=== PATIENT | male | born 1935 | race Caucasian/White ===

== ENCOUNTER 2019-07-25 10:57 | Inpatient (IN) | payer MEDICARE, OTHER ==
[2019-07-25 11:24] LABS: #Eosinphils 0.3 thou/uL (0.0-0.7); #Lymphocytes 0.9 thou/uL (1.20-3.40); #Monocytes 0.4 thou/uL (0.11-0.59); %Basophils 0.6 % (0.0-1.0); %Eosinophils 4.7 % (0.0-10.0); %Lymphocytes 13.1 % (21.0-51.0); %Monocytes 6.5 % (0.0-10.0); %Neutrophils 75.1 % (42.0-75.0); Hemoglobin 13.7 g/dL (14.0-18.0); Mean Corpuscular HGB CONC 33.1 g/dL (32.0-36.0); Mean Corpuscular Hemoglobin 30.5 pg (27.0-31.0); Mean Corpuscular Volume 92.1 fL (78.0-98.0); Mean Platelet Volume 8.7 fL (7.4-10.4); Platelet Count 160 thou/uL (130-400); RBC Distribution Width 13.2 % (11.5-14.5); Red Blood Cell (RBC) Count 4.48 mill/uL (4.70-6.10); White Blood Cell (WBC) Count 6.7 thou/uL (4.8-10.8)
--- NOTE | 2019-07-25 11:30 | CT ---
Exam: Head CT without contrast HISTORY: Altered mental status. Left-sided weakness and facial droop. Last seen normal yesterday 2200 hours COMPARISON: 10/28/2010 FINDINGS: Hemorrhage: No intraparenchymal hemorrhage or extra-axial hematoma. Brain parenchyma: Cortical cody-white matter differentiation is preserved. No mass effect or midline shift. Basilar cisterns are patent.Chronic small vessel ischemic changes white matter are noted. Ventricular system: Ventricles and sulci are patent and symmetric. Calvarium: Intact. Sinuses and mastoid air cells: Adequate aeration. IMPRESSION: No acute intracranial process. Results study discussed with Dr. Packer 11:27 AM on 07/25/2019 Code CR
[2019-07-25 11:38] LABS: INR-International Normal Ratio 1.1
[2019-07-25 11:55] LABS: ALT (SGPT) 10 U/L (8-55); AST (SGOT) 11 U/L (5-34); Albumin 3.5 g/dL (3.4-4.8); Alkaline Phosphatase 79 U/L (40-110); Anion Gap 15 mmol/L (10-20); BUN (Urea Nitrogen) 39 mg/dL (8.4-25.7); Bilirubin, Total 1.4 mg/dL (0.2-1.2); CK (CPK) 47 U/L (30-200); Calc. Creatinine Clearance 0 mL/min (70-130); Calcium 10.5 mg/dL (7.8-10.44); Carbon Dioxide 20 mmol/L (23-31); Chloride 110 mmol/L (98-107); Estimated GFR-MDRD 26; Globulin 2.6 g/dL (2.4-3.5); Glucose 105 mg/dL (83-110); Lipase 54 U/L (8-78); Potassium 4.6 mmol/L (3.5-5.1); Protein, Total 6.1 g/dL (5.8-8.1); Sodium 140 mmol/L (136-145)
--- NOTE | 2019-07-25 12:14 | RAD ---
PORTABLE CHEST: Date: 07/25/2019 HISTORY: Left side weakness. COMPARISON: 06/16/2016. FINDINGS/IMPRESSION: Cardiomegaly. AICD leads again noted. No evidence of infiltrate or vascular congestion. No acute find ing or interval change identified. POS: SHIRLEY
[2019-07-25] MEDS ORDERED: Aspirin Chewable 81 MG TAB ONE (12:26)
[2019-07-25 12:55] LABS: Bacteria/HPF None Seen HPF (None Seen); Bilirubin Negative (Negative); Blood, Urine Negative (Negative); Clarity Clear (Clear); Glucose, Urine (Dipstick) Normal (Negative); Leukocyte Negative Leu/uL (Negative); Nitrite Negative (Negative); Protein, Urine (Dipstick) 100 mg/dL (Neg-Trace); RBC/HPF 0-3 HPF (0-3); Squamous Epithelial 0-3 HPF (0-3); Urobilinogen Normal mg/dL (Less than 2); WBC/HPF 0-3 HPF (0-3)
--- NOTE | 2019-07-25 16:04 | HP ---
PRIMARY CARE PHYSICIAN: Dr. Kim Benitez. REASON FOR ADMISSION: TIA. HISTORY OF PRESENT ILLNESS: An 83-year-old male who has underlying history of hypertension, coronary artery disease, dyslipidemia, and CKD stage 4, who was brought to emergency room because the patient was having left-sided weakness and left-sided facial droop. The patient was not able to get out of bed this morning. The patient was brought to emergency room; at that time, the patient's weakness and facial droop completely resolved. The patient had a CT brain, which was negative for any acute intracranial process. The patient is being admitted for rule out CVA. The patient denies any chest pain, palpitation, or shortness of breath. He denies any fever or chills. He denies any fall. He denies any trauma. He denies any headache or speech problem. REVIEW OF SYSTEMS: CONSTITUTIONAL: Negative for weight loss or gain, ability to conduct usual activities. SKIN: Negative for rash, itching. EYES: Negative for double vision, pain. ENT/MOUTH: Negative for nose bleeding, neck stiffness, pain, tenderness. CARDIOVASCULAR: Negative for palpitations, dyspnea on exertion, orthopnea. RESPIRATORY: Negative for shortness of breath, wheezing, cough, hemoptysis, fever or night sweats. GASTROINTESTINAL: Negative for poor appetite, abdominal pain, heartburn, nausea, vomiting, constipation, or diarrhea. GENITOURINARY: Negative for urgency, frequency, dysuria, nocturia. MUSCULOSKELETAL: Negative for pain, swelling. NEUROLOGIC/PSYCHIATRIC: Negative for anxiety, depression. ALLERGY/IMMUNOLOGIC: Negative for skin rash, bleeding tendency. Please see my HPI for pertinent positives and negatives. All other review of systems reviewed and negative except as mentioned in HPI. EMERGENCY ROOM COURSE: The patient has received aspirin and IV fluid. PAST MEDICAL HISTORY: Coronary artery disease with history of cardiac catheterization and stent placement, pacemaker placement, gout, hypertension, dyslipidemia, CKD stage 4. PAST SURGICAL HISTORY: Right hip replacement, right knee replacement. PAST PSYCHIATRIC HISTORY: Reviewed and negative. SOCIAL HISTORY: The patient is , lives at home with his . No history of tobacco, alcohol, or illicit drug abuse. FAMILY HISTORY: No strong family history of premature coronary artery disease, stroke, or cancer. ALLERGIES: NO KNOWN DRUG ALLERGIES. CURRENT HOME MEDICATIONS: 1. Coreg 12.5 mg twice daily. 2. Colchicine 0.6 mg daily. 3. Imdur 30 mg daily. 4. Hydralazine 10 mg twice daily. 5. Lasix 40 mg daily. 6. Calcitriol 0.25 mcg p.o. daily. 7. Amlodipine 2.5 mg p.o. daily. 8. Allopurinol 300 mg p.o. daily. 9. Zocor 40 mg p.o. every other day. 10. Aspirin 81 mg p.o. daily. PHYSICAL EXAMINATION: VITAL SIGNS: On arrival, blood pressure 131/80, pulse 80, respiratory rate 18, temperature 97.8, saturation 97% on room air. Weight 134 kg. GENERAL: The patient is currently alert, awake, in no acute distress. HEENT: Head, normocephalic and atraumatic. NECK: Supple. No JVD. No meningeal signs of irritation. LUNGS: Clear to auscultation without any rhonchi or rales. CARDIAC: S1 and S2 regular. No murmur. No gallop. No rub. ABDOMEN: Soft, bowel sounds present, nontender, nondistended. No organomegaly. No mass. EXTREMITIES: No edema. Good distal pulsation. SKIN: No skin rash. HEMATOLOGICAL: No lymphadenopathy. NEUROLOGIC: The patient is alert and oriented x3. Speech normal. Cranial nerves 2 through 12 intact. Motor and sensation within normal limits. No focal neurological deficit noted. SIGNIFICANT LABORATORY DATA: EKG showing pacemaker rhythm. CT brain based on my review, no acute intracranial process. Chest x-ray based on my review, no acute cardiopulmonary process. CBC; WBC 6.7, hemoglobin 13.7, platelets 160. INR 1.1. Sodium 140, potassium 4.6, chloride 110, carbon dioxide 20, BUN 39, creatinine 2.44, glucose 105, calcium 10.5. LFT; AST 11, ALT 10, alkaline phosphatase 79, albumin 3.5, lipase 54, CK-MB 1.0, troponin 0.068. BNP 982.8. Urinalysis unremarkable. ASSESSMENT AND PLAN: 1. Transient ischemic attack. 2. Chronic kidney disease, stage 4. 3. Elevated troponin. 4. Elevated BNP. 5. Coronary artery disease. 6. History of systolic heart failure. 7. Ischemic cardiomyopathy. PLAN: 1. Observation to stroke floor. Echocardiography. MRI brain. Neurologic consultation. Carotid Doppler. Aspirin 325 mg p.o. daily, Lipitor 40 mg p.o. at bedtime, Pepcid 20 mg p.o. daily. 2. Deep venous thrombosis prophylaxis, SCD boots. GI prophylaxis, Pepcid 20 mg p.o. daily. CODE STATUS: The patient is full code. The patient is not on ROYER inhibitor and ARB because of advanced renal function. The patient is instead on hydralazine mononitrate regimen. Job ID: [id number]
[2019-07-25] MEDS ORDERED: Ondansetron PF 4 MG/2 ML Vial IVP PRN ×2 (17:54→18:06)
[2019-07-25] MEDS ORDERED: Ondansetron ODT 4 MG TAB SL PRN (17:54)
[2019-07-25] MEDS ORDERED: HYDROcodone/Acetaminophen 5/325 mg Tablet PO PRN (18:06)
[2019-07-25] MEDS ORDERED: hydrALAZINE 20 MG/ML VIAL SLOW IVP PRN (18:06)
[2019-07-25] MEDS ORDERED: Calcium Carbonate 500 MG ChewTAB PO PRN (18:06)
[2019-07-25] MEDS ORDERED: Ondansetron ODT 4 MG TAB PO PRN (18:06)
[2019-07-25] MEDS ORDERED: Loratadine 10 MG TAB PO PRN (18:06)
[2019-07-25] MEDS ORDERED: Senokot S 8.6-50 MG TAB PO PRN (18:06)
[2019-07-25] MEDS ORDERED: Bisacodyl 10 MG SUPP PR PRN (18:06)
[2019-07-25] MEDS ORDERED: Acetaminophen 325 MG TAB PO PRN (18:06)
[2019-07-25] MEDS ORDERED: Artificial Tears 18 DROP/0.9 ML EA EYE PRN (18:06)
[2019-07-25] MEDS ORDERED: Diabetic Tussin 200 MG/10 ML UDCUP PO PRN (18:06)
[2019-07-25] MEDS ORDERED: Sodium Chloride 0.65% Nasal 44 ML BOT EA NARE PRN (18:06)
[2019-07-25] MEDS ORDERED: Zolpidem Tartrate 5 MG TAB PO PRN (18:06)
[2019-07-25] MEDS ORDERED: Loperamide HCl 2 MG CAP PO PRN (18:06)
[2019-07-25 18:29] LABS: CKMB 1.8 ng/mL (0-6.6)
[2019-07-25] MEDS: Carvedilol 6.25 MG TAB PO SCH (21:18)
[2019-07-25] MEDS: Atorvastatin Calcium 40 MG TAB PO SCH (21:19)
[2019-07-25] MEDS: hydrALAZINE 10 MG TAB PO SCH (21:20)
[2019-07-25 22:42] VITALS: BMI 33.9
[2019-07-26 05:34] LABS: Cardiac Risk 3.6 (Less than 4.5)
[2019-07-26] MEDS ORDERED: Amlodipine 5 MG TAB PO SCH (09:00)
[2019-07-26] MEDS ORDERED: FLU VACC TS2019-20(65YR UP)/PF 180 MCG/0.5 ML SYRINGE IM ONE (09:00)
--- NOTE | 2019-07-26 09:10 | ULT ---
US Carotid Doppler STANDARD History: Transient ischemic attack Comparison: None. Findings: Real-time grayscale, color, and spectral analysis of the extracranial carotid and vertebral arteries was performed. No elevated peak systolic velocities within the internal carotid arteries. Antegrade flow both verteb ral arteries. Moderate atherosclerotic plaque both carotid bulbs and proximal internal carotid arteries. Impression: No hemodynamically significant stenosis.
[2019-07-26] MEDS: Allopurinol 300 MG TAB PO SCH (09:11)
[2019-07-26] MEDS: Aspirin 325 MG TAB PO SCH (09:20)
[2019-07-26] MEDS: Famotidine 20 MG TAB PO SCH (09:20)
[2019-07-26] MEDS: Calcitriol 0.25 MCG CAP PO SCH (09:20)
[2019-07-26] MEDS: Carvedilol 6.25 MG TAB PO SCH ×2 (09:20→22:02)
[2019-07-26] MEDS: hydrALAZINE 10 MG TAB PO SCH ×2 (09:21→22:02)
[2019-07-26] MEDS: Isosorbide Mononitrate (ER) 30 MG TAB PO SCH (09:21)
--- NOTE | 2019-07-26 13:37 | PRG ---
DATE OF SERVICE: 07/26/2019 SUBJECTIVE: An 83-year-old male with chronic systolic heart failure, coronary artery disease, hypertension, and dyslipidemia, presented to the emergency room with stroke-like symptoms. He denies any new deficit. He continues to have left-sided weakness along with facial droop. No chest pain, palpitations, syncope, or seizure reported. REVIEW OF SYSTEMS: All other review of systems were reviewed and were found negative. CURRENT MEDICATIONS: Reviewed. Aspirin has been increased to 325. OBJECTIVE: VITAL SIGNS: Temperature 97.7, pulse rate of 61, blood pressure of 90/51 with O2 saturation 96% on room air, respirations of 16. GENERAL: An 83-year-old male, in no apparent distress. LUNGS: Clear to auscultation bilaterally. No wheezing, rales, or rhonchi. HEART: S1 and S2 present. Regular. No rubs or gallops. AICD noted. ABDOMEN: Soft, nontender. Bowel sounds present. EXTREMITIES: No edema or calf tenderness. NEUROLOGIC: The patient continues to have left-sided weakness along with facial droop. Sensation to touch was almost normal bilaterally. [id number] test was somewhat slow on the left. There was no new focal deficit. PSYCHIATRY: Alert, awake, and oriented x3. Normal affect. DIAGNOSTIC DATA: Telemetry monitoring by my review showed paced rhythm. MRI could not be done due to AICD. The patient is declining echocardiogram at this time. He states that he had an echocardiogram [address] Jolley' office that showed ejection fraction of 35%. Carotid Doppler was negative for hemodynamically significant stenosis. Chest x-ray by my review was negative for infiltrate or edema. IMPRESSION: 1. 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 2. Chronic systolic heart failure, ejection fraction 35% range, status post automatic implantable cardioverter-defibrillator. 3. Coronary artery disease. 4. Ischemic cardiomyopathy. 5. Chronic kidney disease, stage 4. 6. Elevated troponins probably secondary to congestive heart failure, questionable type 2 myocardial infarction. 7. Hypotension. 8. Obesity with a BMI of 33.9. 9. Chronic anemia. PLAN: We will continue 325 mg aspirin along with statins. We will hold amlodipine for now. Reduce carvedilol to 6.25 mg b.i.d. Continue isosorbide mononitrate. Recheck electrolytes in a.m. Continue physical therapy. The patient understands the above plan of care. Job ID: [id number]
--- NOTE | 2019-07-26 18:01 | CON ---
DATE OF CONSULTATION: 07/26/2019 CHIEF COMPLAINT: Weakness. HISTORY OF PRESENT ILLNESS: The patient got up, tried to get out of bed, he has a waterbed which was changed to an airbed. He could not get a cross, he has a crossbar and he could not get out, so it took him an hour. Paramedics were called and they told him he had a stroke and brought him to the hospital. PREVIOUS MEDICAL HISTORY: Includes coronary artery disease, chronic kidney disease. He stated he does not have high blood pressure, but his chart review states he has hypertension, chronic kidney disease as well, and he has coronary artery disease with stent placement and pacemaker placement, gout, hypertension, dyslipidemia, in addition to this. PREVIOUS SURGICAL HISTORY: Includes right hip replacement, bilateral knee replacements, and pacemaker placement. PSYCHIATRIC HISTORY: Negative. SOCIAL HISTORY: He is , lives with his . There is no history of alcohol or tobacco use. He has smoked for 20 years and he quit at the age of 47 and he used to smoke one pack a day in the past. Does not drink. 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 FAMILY HISTORY: Mother at 101. Father at 80 from an IA. The patient has 3 siblings, all in their 80s, they are reasonably healthy. He has 3 sons, all of them are healthy. ALLERGIES: NO KNOWN DRUG ALLERGIES. HOME MEDICATIONS: He takes: 1. Coreg. 2. Colchicine. 3. Imdur. 4. Hydralazine. 5. Lasix. 6. Calcitriol. 7. Amlodipine. 8. Allopurinol. 9. Zocor. 10. Aspirin. REVIEW OF SYSTEMS: PULMONARY: Negative for shortness of breath or cough. GI: Negative for nausea, vomiting, or diarrhea. NEUROLOGIC: Positive for weakness. CARDIAC: Negative for chest pain. OPHTHALMOLOGIC: Negative for any vision issues. LABORATORY DATA: White count 6.7, hemoglobin 13.7, hematocrit 41.3, and platelet count is 160. PT 14, INR 1.1, and PTT 29. Sodium 140, potassium 4.6, chloride 110, bicarb 20, BUN 39, creatinine 2.44, glucose 105, calcium 10.5, and bilirubin 1.4. Cholesterol and lipid profile within normal limits. Urinalysis is negative. His CT of the head does show chronic microvascular ischemic changes and no acute process. Echocardiogram is pending. Carotid Doppler was completed and Doppler does not show any hemodynamically significant stenosis. PHYSICAL EXAMINATION: VITAL SIGNS: Temperature 97.5, pulse 60, respiratory rate 16, and blood pressure 95/51. GENERAL APPEARANCE: Well-built, well-nourished man. CHEST: Clear vesicular breathing. CARDIOVASCULAR: S1 and S2 heard. No murmurs. ABDOMEN: Soft and nontender. No organomegaly noted. NEUROLOGIC: Motor, bulk normal. Tone normal. Strength 5/5 throughout on the right side. In the left side, his extensors were 4/5, flexors were 5. Muscle groups tested deltoid, biceps, triceps, wrist extension and flexion, finger extension and flexion bilaterally, iliopsoas hamstrings, quadriceps, ankle dorsiflexion and plantar flexion. Cerebellar, normal [id number] and [id number]. Sensory, normal to touch bilaterally. IMPRESSION: The patient is an 83-year-old man with history of difficulty getting out of bed today and he has left-sided weakness on exam and there is no previous history of stroke, but he does have cardiac risk factors for stroke. His stroke risk factors include coronary artery disease, hyperlipidemia, and hypercholesterolemia. His examination showed hypotension as well, which can be contributory to generalized weakness. RECOMMENDATIONS: Please make sure, the patient is on high-dose aspirin along with statin for stroke prophylaxis. We can always add Plavix if needed. Unfortunately, we cannot obtain MRI to confirm stroke, but I suspect he might have had a microvascular ischemic event based on his exam. I will follow up as needed. Job ID: [id number]
[2019-07-26] MEDS: Atorvastatin Calcium 40 MG TAB PO SCH (22:03)
[2019-07-27 05:11] LABS: Anion Gap 12 mmol/L (10-20); BUN (Urea Nitrogen) 41 mg/dL (8.4-25.7); Calc. Creatinine Clearance 35 mL/min (70-130); Calcium 10.3 mg/dL (7.8-10.44); Carbon Dioxide 21 mmol/L (23-31); Chloride 110 mmol/L (98-107); Estimated GFR-MDRD 27; Glucose 93 mg/dL (83-110); Potassium 4.2 mmol/L (3.5-5.1); Sodium 139 mmol/L (136-145)
[2019-07-27] MEDS: Aspirin 325 MG TAB PO SCH (09:53)
[2019-07-27] MEDS: Famotidine 20 MG TAB PO SCH (09:54)
[2019-07-27] MEDS: Isosorbide Mononitrate (ER) 30 MG TAB PO SCH (09:55)
[2019-07-27] MEDS: Calcitriol 0.25 MCG CAP PO SCH (09:55)
[2019-07-27] MEDS: hydrALAZINE 10 MG TAB PO SCH ×2 (09:55→21:26)
[2019-07-27] MEDS: Allopurinol 300 MG TAB PO SCH (09:55)
[2019-07-27] MEDS: Carvedilol 6.25 MG TAB PO SCH (09:56)
--- NOTE | 2019-07-27 13:01 | PDOC.HOSPP ---
- Subjective Encounter Date: 07/27/19 Encounter Time: 08:30 Subjective: Patient seen and examined for CVA. Slight worsening of Left sided weakness. No new complaints. No overnight events - Objective Vital Signs & Weight: Vital Signs (12 hours) Temp Pulse Resp BP BP Pulse Ox 07/27/19 11:00 98.7 F 96 13 106/46 L 95 07/27/19 09:56 117/68 07/27/19 09:55 60 117/68 07/27/19 07:00 97.8 F 60 13 126/78 93 L 07/27/19 03:37 98.3 F 59 L 18 112/66 98 Weight Weight 223 lb I&O: 07/26/19 07/27/19 07/28/19 06:59 06:59 06:59 Intake Total 1400 780 Output Total 350 Balance 1050 780 Result Diagrams: 07/25/19 11:08 07/27/19 04:32 EKG Reviewed by me: Yes (Tele SR) Hospitalist ROS - Review of Systems Respiratory: denies: cough, dry, shortness of breath, hemoptysis, SOB with excertion, pleuritic pain, sputum, wheezing, other Cardiovascular: denies: chest pain, palpitations, orthopnea, paroxysmal noc. dyspnea, edema, light headedness, other - Medication Medications: Active Medications Generic Name Dose Route Start Last Admin Trade Name Freq PRN Reason Stop Dose Admin Allopurinol 300 mg 07/26/19 09:00 07/27/19 09:55 Zyloprim PO 300 mg DAILY MASTER Administration Aspirin 325 mg 07/26/19 09:00 07/27/19 09:53 Aspirin PO 325 mg DAILY MASTER Administration Atorvastatin Calcium 40 mg 07/25/19 21:00 07/26/19 22:03 Lipitor PO 40 mg HS MASTER Administration Calcitriol 0.25 mcg 07/26/19 09:00 07/27/19 09:55 Rocaltrol PO 0.25 mcg DAILY MASTER Administration Carvedilol 6.25 mg 07/26/19 21:00 07/27/19 09:56 Coreg PO 6.25 mg BID MASTER Administration Famotidine 20 mg 07/26/19 09:00 07/27/19 09:54 Pepcid PO 20 mg DAILY MASTER Administration Hydralazine HCl 10 mg 07/25/19 21:00 07/27/19 09:55 Apresoline PO 10 mg BID MASTER Administration Isosorbide Mononitrate 30 mg 07/26/19 09:00 07/27/19 09:55 Imdur Er PO 30 mg DAILY MASTER Administration Loratadine 10 mg 07/25/19 18:06 07/26/19 22:01 Claritin PO 10 mg DAILYPRN PRN Administration Sinus Symptoms Sodium Chloride 0 ml 07/25/19 18:06 07/26/19 22:00 [place] Nasal [place] 0.65% EA NARE 1 spray QIDPRN PRN Administration Nasal Congestion - Exam General Appearance: NAD Neck: supple, no JVD Heart: RRR, no gallops Respiratory: no wheezes, no rales, no ronchi Gastrointestinal: non-tender, non-distended, normal bowel sounds Neurological: no new deficit Psychiatric: normal affect, A&O x 3 Hosp A/P - Plan DVT proph w/lovenox, DVT proph w/SCDs IMPRESSION: 1. 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 2. Chronic systolic heart failure, ejection fraction 35% range, status post automatic implantable cardioverter-defibrillator. 3. Coronary artery disease. 4. Ischemic cardiomyopathy. 5. Chronic kidney disease, stage 4. 6. Elevated troponins probably secondary to congestive heart failure, questionable type 2 myocardial infarction. 7. Hypotension. 8. Obesity with a BMI of 33.9. 9. Chronic anemia. 10. ANJEL on CPAP PLAN: Reduce Coreg dose Repeat CT brain today Cont ASA/Statins Echo pending Stroke team
--- NOTE | 2019-07-27 13:08 | CT ---
CT HEAD WITHOUT CONTRAST: Date: 07/27/2019 INDICATION: CVA. Comparison made to recent CT head of 07/25/2019. FINDINGS: Mild cortical volume loss. Moderate chronic ischemic white matter change. Ischemic change into the ri ght basal ganglia could represent subacute lacunar infarct. There is no evidence of acute cortical infarct. No mass or hemorrhage. If there is concern of new neurologic deficit, recommend MRI to assess for restricted diffusion. IMPRESSION: No acute interval change in the head CT. Consider MRI if there is concern of infarct. POS: MILLER
[2019-07-27] MEDS: Carvedilol 3.125 MG TAB PO SCH (16:54)
[2019-07-27] MEDS ORDERED: Tamsulosin HCl 0.4 MG CAP PO SCH (21:15)
[2019-07-27] MEDS: Atorvastatin Calcium 40 MG TAB PO SCH (21:26)
[2019-07-28] MEDS: Allopurinol 300 MG TAB PO SCH (08:41)
[2019-07-28] MEDS: hydrALAZINE 10 MG TAB PO SCH ×2 (08:41→21:20)
[2019-07-28] MEDS: Aspirin 325 MG TAB PO SCH (08:41)
[2019-07-28] MEDS: Famotidine 20 MG TAB PO SCH (08:41)
[2019-07-28] MEDS: Carvedilol 3.125 MG TAB PO SCH ×2 (08:41→17:37)
[2019-07-28] MEDS: Isosorbide Mononitrate (ER) 30 MG TAB PO SCH (08:41)
[2019-07-28] MEDS: Calcitriol 0.25 MCG CAP PO SCH (08:41)
[2019-07-28] MEDS ORDERED: Furosemide 40 MG TAB PO SCH (12:15)
--- NOTE | 2019-07-28 18:34 | CON ---
DATE OF CONSULTATION: REASON FOR CONSULTATION: Recent cerebrovascular accident. HISTORY OF PRESENT ILLNESS: Mr. Lucio is an 83-year-old gentleman who was seen and evaluated in the past. He has a history of CAD, status post NE in addition to stent placement. He has an ischemic cardiomyopathy status post ICD. His last LVEF estimated at 20%. He recently presented with left-sided weakness. The weakness has not completely resolved. MRI could not be performed due to incompatible ICD. PAST MEDICATIONS: Include: 1. Allopurinol. 2. Calcitriol. 3. Vitamin C. 4. Atorvastatin. 5. Amlodipine. 6. Coreg. 7. Hydralazine. 8. Isosorbide. 9. Aspirin. 10. Flomax. 11. Eliquis. 12. Lasix. PAST MEDICAL HISTORY: CAD status post NE, obstructive sleep apnea, hyperlipidemia, chronic kidney disease, previous NE, pericardial effusion, knee replacement, hip replacement, back surgery, heel surgery, paroxysmal atrial fibrillation. SOCIAL HISTORY: No current tobacco use or alcohol use. ALLERGIES: NONE. REVIEW OF SYSTEMS: A 10-point review of systems is reviewed as above, otherwise negative. PHYSICAL EXAMINATION: GENERAL: Patient is a pleasant 83-year-old gentleman who is in no acute distress. The patient appears their stated age. VITAL SIGNS: Blood pressure 118/62, pulse temperature 97.8. NEUROLOGIC: The patient is alert and oriented x3 with no focal neurologic deficits. HEENT: Sclerae without icterus. Mouth has moist mucous membranes with normal pallor. NECK: No JVD. Carotid upstroke brisk. No bruits bilaterally. LUNGS: Clear to auscultation with unlabored respirations. BACK: No scoliosis or kyphosis. CARDIAC: Regular rate and rhythm with normal S1 and S2. No S3 or S4 noted. No significant rubs, murmurs, thrills, or gallops noted throughout the precordium. PMI is not displaced. There is no parasternal heave. ABDOMEN: Soft, nontender, nondistended. No peritoneal signs present. No hepatosplenomegaly. No abnormal striae. EXTREMITIES: 2+ femoral and 2+ dorsalis pedis pulses. No cyanosis, clubbing, or edema. SKIN: No gross abnormalities. NEUROLOGICAL: Left-sided weakness. PERTINENT LABORATORY DATA: Hemoglobin 13.7, hematocrit 41.3. Creatinine 2.36. Troponin 0.108. IMPRESSION: 1. Recent cerebrovascular accident. 2. Recent diagnosis of paroxysmal atrial fibrillation. 3. Ischemic cardiomyopathy. 4. Status post implantable cardioverter-defibrillator. RECOMMENDATIONS: Mr. Lucio was diagnosed with paroxysmal atrial fibrillation in March of 2019. He was last seen in May. At that time, he has continued to take Eliquis. . He is currently not taking Eliquis. Etiology is unknown. His recent episode of CVA, likely related to paroxysmal atrial fibrillation. We would recommend full-dose anticoagulation. Would discontinue Plavix and continue aspirin. ICD was interrogated. No changes were noted. Job ID: [id number]
[2019-07-28] MEDS: Atorvastatin Calcium 40 MG TAB PO SCH (21:19)
[2019-07-28] MEDS: Apixaban 2.5 MG TAB PO SCH (21:19)
--- NOTE | 2019-07-28 22:05 | PDOC.HOSPP ---
- Subjective Encounter Date: 07/28/19 Encounter Time: 08:30 Subjective: Patient seen and examined for Acute CVA. No new focal deficits. No new complaints. No overnight events - Objective Vital Signs & Weight: Vital Signs (12 hours) Temp Pulse Resp BP BP Pulse Ox 07/28/19 21:20 59 L 118/62 07/28/19 19:20 97.4 F L 59 L 18 118/62 98 07/28/19 15:47 97.7 F 60 13 117/66 96 07/28/19 11:47 97.8 F 60 19 118/62 96 Weight Weight 223 lb I&O: 07/27/19 07/28/19 07/29/19 06:59 06:59 06:59 Intake Total 780 120 580 Output Total 350 Balance 780 120 230 Result Diagrams: 07/25/19 11:08 07/27/19 04:32 Radiology Reviewed by me: Yes (CT brain - neg) EKG Reviewed by me: Yes (Tele Paced) Hospitalist ROS - Review of Systems Respiratory: denies: cough, dry, shortness of breath, hemoptysis, SOB with excertion, pleuritic pain, sputum, wheezing, other Cardiovascular: denies: chest pain, palpitations, orthopnea, paroxysmal noc. dyspnea, edema, light headedness, other - Medication Medications: Active Medications Generic Name Dose Route Start Last Admin Trade Name Freq PRN Reason Stop Dose Admin Allopurinol 300 mg 07/26/19 09:00 07/28/19 08:41 Zyloprim PO 300 mg DAILY MASTER Administration Apixaban 2.5 mg 07/28/19 21:00 07/28/19 21:19 Eliquis PO 2.5 mg BID MASTER Administration Atorvastatin Calcium 40 mg 07/25/19 21:00 07/28/19 21:19 Lipitor PO 40 mg HS MASTER Administration Calcitriol 0.25 mcg 07/26/19 09:00 07/28/19 08:41 Rocaltrol PO 0.25 mcg DAILY MASTER Administration Carvedilol 3.125 mg 07/27/19 17:00 07/28/19 17:37 Coreg PO 3.125 mg BID-WM MASTER Administration Famotidine 20 mg 07/26/19 09:00 07/28/19 08:41 Pepcid PO Not Given DAILY MASTER Hydralazine HCl 10 mg 07/25/19 21:00 07/28/19 21:20 Apresoline PO 10 mg BID MASTER Administration Isosorbide Mononitrate 30 mg 07/26/19 09:00 07/28/19 08:41 Imdur Er PO 30 mg DAILY MASTER Administration Loratadine 10 mg 07/25/19 18:06 07/26/19 22:01 Claritin PO 10 mg DAILYPRN PRN Administration Sinus Symptoms Sodium Chloride 0 ml 07/25/19 18:06 07/26/19 22:00 [place] Nasal [place] 0.65% EA NARE 1 spray QIDPRN PRN Administration Nasal Congestion - Exam General Appearance: NAD Neck: supple, no JVD Heart: no gallops, no rubs Respiratory: no wheezes, no ronchi Gastrointestinal: non-distended, normal bowel sounds Extremities: no cyanosis Neurological: no new deficit Neurological - other findings: left sided weakness Psychiatric: normal affect, A&O x 3 Hosp A/P - Plan 1. 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 2. Chronic systolic heart failure, ejection fraction 35% range, status post automatic implantable cardioverter-defibrillator. 3. Coronary artery disease. 4. Ischemic cardiomyopathy. 5. Chronic kidney disease, stage 4. 6. Elevated troponins probably secondary to congestive heart failure, questionable type 2 myocardial infarction. 7. Hypotension. 8. Obesity with a BMI of 33.9. 9. Chronic anemia. 10. ANJEL on CPAP PLAN: Cont Coreg dose Resume selected home meds Cont PT/OT Cont ASA/Statins Echo reviewed Rehab eval
[2019-07-29 04:55] LABS: Hemoglobin 12.9 g/dL (14.0-18.0); Platelet Count 149 thou/uL (130-400)
[2019-07-29 05:15] LABS: Anion Gap 11 mmol/L (10-20); BUN (Urea Nitrogen) 45 mg/dL (8.4-25.7); Calc. Creatinine Clearance 34 mL/min (70-130); Calcium 10.3 mg/dL (7.8-10.44); Carbon Dioxide 24 mmol/L (23-31); Chloride 110 mmol/L (98-107); Estimated GFR-MDRD 25; Glucose 97 mg/dL (83-110); Magnesium 1.9 mg/dL (1.6-2.6); Potassium 4.2 mmol/L (3.5-5.1); Sodium 141 mmol/L (136-145)
[2019-07-29] MEDS ORDERED: Furosemide 40 MG TAB PO SCH (07:30)
[2019-07-29] MEDS ORDERED: Clopidogrel Bisulfate 75 MG TAB PO SCH (09:00)
[2019-07-29] MEDS ORDERED: Aspirin 81 mg Enteric Coated Tablet PO SCH (09:00)
[2019-07-29] MEDS ORDERED: Furosemide 20 MG TAB PO SCH (09:30)
[2019-07-29] MEDS: Carvedilol 3.125 MG TAB PO SCH ×2 (10:02→17:48)
[2019-07-29] MEDS: Allopurinol 300 MG TAB PO SCH (10:02)
[2019-07-29] MEDS: Apixaban 2.5 MG TAB PO SCH (10:02)
[2019-07-29] MEDS: hydrALAZINE 10 MG TAB PO SCH (10:04)
[2019-07-29] MEDS: Calcitriol 0.25 MCG CAP PO SCH (10:05)
[2019-07-29] MEDS: Isosorbide Mononitrate (ER) 30 MG TAB PO SCH (10:05)
[2019-07-29] MEDS: Famotidine 20 MG TAB PO SCH (10:05)
--- NOTE | 2019-07-29 10:20 | PDOC.HOSPP ---
- Subjective Encounter Date: 07/29/19 Encounter Time: 08:30 Subjective: Patient seen and examined for Acute CVA. No CP/SOB/focal deficits. No new complaints. No overnight events - Objective Vital Signs & Weight: Vital Signs (12 hours) Temp Pulse Resp BP BP Pulse Ox 07/29/19 10:04 59 L 125/67 07/29/19 07:00 97.3 F L 60 12 121/62 98 07/29/19 03:30 97.3 F L 60 18 125/72 99 07/28/19 23:30 97.7 F 63 20 128/76 98 Weight Weight 223 lb I&O: 07/28/19 07/29/19 07/30/19 06:59 06:59 06:59 Intake Total 120 580 Output Total 350 Balance 120 230 Result Diagrams: 07/29/19 04:36 07/29/19 04:36 EKG Reviewed by me: Yes (Tele SR) Hospitalist ROS - Review of Systems Respiratory: denies: cough, dry, shortness of breath, hemoptysis, SOB with excertion, pleuritic pain, sputum, wheezing, other Cardiovascular: denies: chest pain, palpitations, orthopnea, paroxysmal noc. dyspnea, edema, light headedness, other - Medication Medications: Active Medications Generic Name Dose Route Start Last Admin Trade Name Cedricq PRN Reason Stop Dose Admin Allopurinol 300 mg 07/26/19 09:00 07/29/19 10:02 Zyloprim PO 300 mg DAILY MASTER Administration Apixaban 2.5 mg 07/28/19 21:00 07/29/19 10:02 Eliquis PO 2.5 mg BID MASTER Administration Aspirin 81 mg 07/29/19 09:00 07/29/19 10:04 Ecotrin PO 81 mg DAILY MASTER Administration Atorvastatin Calcium 40 mg 07/25/19 21:00 07/28/19 21:19 Lipitor PO 40 mg HS MASTER Administration Calcitriol 0.25 mcg 07/26/19 09:00 07/29/19 10:05 Rocaltrol PO 0.25 mcg DAILY MASTER Administration Carvedilol 3.125 mg 07/27/19 17:00 07/29/19 10:02 Coreg PO 3.125 mg BID-WM MASTER Administration Famotidine 20 mg 07/26/19 09:00 03/03/20 10:05 Pepcid PO 20 mg DAILY MASTER Administration Furosemide 20 mg 07/29/19 09:30 07/29/19 10:03 Lasix PO 07/29/19 11:00 20 mg NOW MASTER Administration Hydralazine HCl 10 mg 07/25/19 21:00 07/29/19 10:04 Apresoline PO 10 mg BID MASTER Administration Isosorbide Mononitrate 30 mg 07/26/19 09:00 07/29/19 10:05 Imdur Er PO 30 mg DAILY MASTER Administration Loratadine 10 mg 07/25/19 18:06 07/26/19 22:01 Claritin PO 10 mg DAILYPRN PRN Administration Sinus Symptoms Sodium Chloride 0 ml 07/25/19 18:06 07/26/19 22:00 [place] Nasal [place] 0.65% EA NARE 1 spray QIDPRN PRN Administration Nasal Congestion - Exam General Appearance: NAD Neck: supple, no JVD Heart: no gallops, no rubs Respiratory: no wheezes, no rales Gastrointestinal: non-tender, non-distended Extremities: no cyanosis Neurological: no new deficit Psychiatric: normal affect, A&O x 3 Hosp A/P - Plan 1. 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 Chronic systolic heart failure, ejection fraction 35% range, s/p AICD 3. Coronary artery disease. 4. Ischemic cardiomyopathy. 5. Chronic kidney disease, stage 4. 6. Elevated troponins probably secondary to congestive heart failure, questionable type 2 myocardial infarction. 7. Hypotension. 8. Obesity with a BMI of 33.9. 9. Chronic anemia. 10. ANJEL on CPAP 11. Par Afib PLAN: Cont ASA/Eliquis/Statins Cont Coreg Reduce Lasix dose Cont other meds Cont PT/OT
[2019-07-29 16:11] VITALS: BP 104/58; TEMP 98.1
--- NOTE | 2019-07-29 22:45 | DIS ---
DATE OF ADMISSION: 07/26/2019 DATE OF DISCHARGE: 07/29/2019 DISCHARGE DISPOSITION: Inpatient rehabilitation. FOLLOWUP: 1. Follow up with primary care physician, Dr. Alvarez in 1 week. 2. Follow up with Cardiology, Dr. Jolley and Neurology, Dr. Mantilla as scheduled. CODE STATUS: Do not resuscitate. The patient was seen and examined on the day of discharge. Denies any new complaints. No new focal deficit. Please refer to my progress note for details. DISCHARGE MEDICATIONS: 1. Aspirin 81 mg daily. 2. Eliquis 2.5 mg b.i.d. 3. Carvedilol 3.125 mg b.i.d. 4. Flomax 0.4 mg daily. 5. Isosorbide mononitrate 30 mg daily. 6. Hydralazine 10 mg twice a day. 7. Lasix as needed. 8. Calcitriol 0.25 mcg daily. 9. Bumex 1 mg as directed. 10. Lipitor 40 mg at bedtime. 11. Allopurinol 30 mg daily. INPATIENT CONSULTANTS: 1. Cardiology, Dr. Jolley. 2. Neurology, Dr. Cabrera. BRIEF HOSPITAL COURSE: The patient is an 83-year-old male with coronary artery disease, hypertension, CKD, and dyslipidemia, presented to the emergency room with stroke-like symptoms. His workup was consistent with acute CVA. He was monitored in the stroke unit. CT scan of the brain was negative for acute findings. Carotid Doppler was negative for hemodynamically significant stenosis. Echocardiogram showed ejection fraction of 15% to 20% with moderate mitral regurgitation, mild tricuspid regurgitation, and left ventricular dilatation. MRI was not done due to AICD. He was evaluated by Cardiology and Neurology. Anticoagulation was recommended by Cardiology due to episodes of atrial fibrillation in March. Please note that the patient was advised to start anticoagulation by Cardiology as an outpatient; however, he was only on aspirin on admission. He appears stable for discharge to inpatient rehabilitation. He understands the risk associated with anticoagulation. FINAL DIAGNOSES: 1. 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 2. Chronic systolic heart failure, ejection fraction of 15% to 20% range, status post automatic implantable cardioverter-defibrillator. 3. Paroxysmal atrial fibrillation. 4. Coronary artery disease. 5. Ischemic cardiomyopathy. 6. Chronic kidney disease, stage 4. 7. Hypertension. 8. Obesity with a BMI of 33.9. 9. Chronic anemia suspected due to renal insufficiency. 10. Obstructive sleep apnea, on CPAP. Total time coordinating the discharge of this patient was 36 minutes. Job ID: [id number]
--- NOTE | 2019-07-30 04:58 | PQF ---
KM KAPLAN MALIK MD [id number] [address] [place] [address] [id number] CLINICAL DOCUMENTATION CLARIFICATION FORM: POST DISCHARGE Addendum to original discharge summary date: ____ Late entry note date: __ DATE: 07/30/2019 ATTN: Mark Collins Please exercise your independent, professional judgment in responding to the clarification form. Clinical indicators are provided on the bottom of this form for your review Please check appropriate box(s) to clarify if the following diagnosis has been ruled in or ruled out: Suspected Type 2 Myocardial Infarction: [ x ] Ruled in diagnosis [ ] Continue to treat [ ] Resolved [ ] Ruled out diagnosis [ ] Cannot rule out diagnosis [ ] Other diagnosis [ ] Unable to determine In addition, please specify: Present on Admission (POA): [x ] Yes [ ] No [ ] Unable to determine For continuity of documentation, please document condition throughout progress notes and discharge summary. Thank You. CLINICAL INDICATORS - SIGNS / SYMPTOMS / LABS Coagulation 07/25 PT 14.0, INR 1.1, APTT 29.0 Blood Chemistry 07/25 Troponin I 0.068, BNP 982.8, Creatine Kinase 47 Vital signs 07/25 BP 131/80, Pulse 80, Resp 18, Temp 97.8, O2sat 97% ED Notes p4 07/25 ST segment normal and T wave normal H&P p1 07/25 Dr Crouch brought to ER because the pt was having left sided weakness and left sided facial droop H&P p1 07/25 Dr Crouch Pt denies ant chest pain, palpitation or SOB H&P p3 07/25 Dr Crouch Elevated troponin, Elevated BNP Hospitalist PN p4 07/27 Dr Jane Elevated troponin probably secondary to congestive heart failure, questionable type 2 myocardial infarction RISK FACTORS ED Notes p1 07/25 [place] H&P p1 07/25 83 year-old male H&P p1 07/25 HTN H&P p1 07/25 CAD H&P p1 07/25 HLD H&P p1 07/25 CKD 4 H&P p2 07/25 s/p Cardiac Stent and AICD H&P p3 07/25 Systolic heart failure H&P p3 07/25 Ischemic Cardiomyopathy Hospitalist PN p4 Obesity with BMI 33.9 DS p2 3/3 Paroxysmal Afib DS p2 3 Mitral and tricuspid regurgitation TREATMENTS JUL 27 Aspirin Chew[place] 81mg Oral JUL 27 Lipitor 40 mg Oral JUL 27 Coreg 12.5 mg Oral JUL 28 Lasix 40mg po Oral Echocardiography ordered 07/25 Carotid Doppler ordered 07/25 Cardiology consult 07/27 Frandy Oscar ED Notes p4 07/25 EKG (This form is maintained as a part of the permanent medical record) 2014 [email or web address]. All Rights Reserved [email or web address]
[2019-07-30] MEDS ORDERED: Furosemide 20 MG TAB PO SCH (09:00)
== END 2019-07-29 17:41 | DRG 64 ==
LOC: ERS 10:57 → 2SE 18:01 → OBSVTOIN 07-26 13:21
PROVIDERS: ADMIT Internal Medicine; ATTEND Internal Medicine
DX: I63.511 Cerebral infarction due to unspecified occlusion or stenosis of right middle cerebral artery (principal); I21.A1 Myocardial infarction type 2; I50.22 Chronic systolic (congestive) heart failure; N18.4 Chronic kidney disease, stage 4 (severe); I13.0 Hypertensive heart and chronic kidney disease with heart failure and stage 1 through stage 4 chronic kidney disease, or unspecified chronic kidney disease; G81.94 Hemiplegia, unspecified affecting left nondominant side; I48.0 Paroxysmal atrial fibrillation; I25.10 Atherosclerotic heart disease of native coronary artery without angina pectoris; I25.5 Ischemic cardiomyopathy; E66.9 Obesity, unspecified; D63.1 Anemia in chronic kidney disease; G47.33 Obstructive sleep apnea (adult) (pediatric); R29.810 Facial weakness; Z96.641 Presence of right artificial hip joint; Z96.653 Presence of artificial knee joint, bilateral; I95.9 Hypotension, unspecified; R29.701 NIHSS score 1; R40.2142 Coma scale, eyes open, spontaneous, at arrival to emergency department; R40.2362 Coma scale, best motor response, obeys commands, at arrival to emergency department; R40.2252 Coma scale, best verbal response, oriented, at arrival to emergency department; Z68.33 Body mass index [BMI] 33.0-33.9, adult; Z95.5 Presence of coronary angioplasty implant and graft; Z95.810 Presence of automatic (implantable) cardiac defibrillator; Z79.899 Other long term (current) drug therapy; Z79.82 Long term (current) use of aspirin
CPT/HCPCS: 36415; 36416; 70450; 71045; 80048; 80053; 80061; 81003; 81015; 82550; 82553; 83605; 83690; 83735; 83880; 84484; 85014; 85018; 85025; 85049; 85610; 85730; 87040; 87149; 93005; 93306; 93880; 96360